=== PATIENT | male | born 1990 ===

== ENCOUNTER 2023-04-06 04:39 | Emergency (ER) | payer OTHER ==
[2023-04-06] MEDS ORDERED: Sodium Chloride 0.9% 10 ML Syringe FLUSH PRN (05:12)
[2023-04-06] MEDS ORDERED: Ondansetron 4 MG/2 ML SDV IVPUSH ONE (05:28)
[2023-04-06 05:48] LABS: BASOPHILS PERCENT AUTO 0.3 % (0.0-1.0); EOSINOPHILS PERCENT AUTO 7.6 % (1.0-3.0); HEMATOCRIT 46.5 % (40.0-54.0); LYMPHOCYTES PERCENT AUTO 20.6 % (20.5-50.1); MEAN CORPUSCULAR HEMOGLOBIN 30.4 pg (27.0-34.0); MEAN CORPUSCULAR HGB CONC 34.4 g/dL (33.0-35.0); MEAN CORPUSCULAR VOLUME 88.4 fL (80-100); MONOCYTES PERCENT AUTO 10.7 % (2-8); NEUTROPHILS PERCENT AUTO 60.8 % (42.2-75.2); PLATELET COUNT,PLT 286 10^3/uL (150-450); RED BLOOD CELL COUNT 5.26 10^6/uL (4.6-6.2); WHITE BLOOD CELL COUNT,WBC 7.9 10^3/uL (5.0-10.0)
[2023-04-06 06:07] LABS: A/G RATIO 1.1; ALBUMIN 4.3 g/dL (3.4-5.0); ANION GAP 15.6 mEq/L (7-13); BILIRUBIN TOTAL 0.6 mg/dL (0.2-1.0); BUN/CREATININE RATIO 9.9 (No establ ref range); C-REACTIVE PROTEIN 0.6 mg/dL (0.0-0.9); CALCIUM 9.4 mg/dL (8.5-10.1); CREATININE 1.21 mg/dL (0.70-1.30); EST CRCL DRUG DOSING (CG) 76.89 mL/min; POTASSIUM,K 3.6 mmol/L (3.5-5.1); PROTEIN TOTAL,TP 8.1 g/dL (6.4-8.2)
[2023-04-06 06:12] LABS: LACTIC ACID 1.5 mmol/L (0.4-2.0)
== END 2023-04-06 06:38 | disposition home or self-care (01) ==
LOC: DL.ED 04:39
DX: R11.2 Nausea with vomiting, unspecified (principal); E66.9 Obesity, unspecified; Z68.41 Body mass index [BMI] 40.0-44.9, adult; Z79.899 Other long term (current) drug therapy; Z88.8 Allergy status to other drugs, medicaments and biological substances; Z91.018 Allergy to other foods
CPT/HCPCS: 36415; 80053; 82150; 83605; 83690; 85025; 86140; 96374; 99284; J2405; J3490

== ENCOUNTER 2023-11-14 17:33 | Emergency (ER) | payer OTHER ==
[2023-11-14] MEDS: HYDROmorphone 1 MG/ML Syringe IM ONE (19:11)
[2023-11-14] MEDS: Ketorolac 30 MG/ML SDV IM ONE (19:11)
== END 2023-11-14 20:29 | disposition home or self-care (01) ==
LOC: DL.ED 17:33
DX: S80.01XA Contusion of right knee, initial encounter (principal); M25.512 Pain in left shoulder; Z79.899 Other long term (current) drug therapy; Z91.018 Allergy to other foods; Z88.8 Allergy status to other drugs, medicaments and biological substances; V49.3XXA Car occupant (driver) (passenger) injured in unspecified nontraffic accident, initial encounter; Y92.410 Unspecified street and highway as the place of occurrence of the external cause
CPT/HCPCS: 71045; 72170; 73030; 73562; 73610; 96372; 99283; 99284; J1170; J1885